=== PATIENT | male | born 1970 | race Caucasian/White ===

== ENCOUNTER 2018-08-01 00:47 | Emergency (ER) | payer SELFPAY ==
[~2018-08-01] VITALS: Ht 170.2 cm; Wt 81.2 kg
[2018-08-01 01:00] VITALS: Ht 170.2 cm; Wt 81.2 kg
[2018-08-01 02:22] VITALS: BP 134/81
== END 2018-08-01 02:23 | disposition home or self-care (01) ==
LOC: ED 00:47
DX: S43.102A Unspecified dislocation of left acromioclavicular joint, initial encounter (principal); W20.8XXA Other cause of strike by thrown, projected or falling object, initial encounter; Y93.89 Activity, other specified; Y92.89 Other specified places as the place of occurrence of the external cause; Y99.8 Other external cause status